=== PATIENT | male | born 2000 | race Caucasian/White ===

== ENCOUNTER 2023-10-24 20:31 | Emergency (ER) | payer BC ==
--- NOTE | 2023-10-24 21:26 | ED ---
General Adult HPI - General Chief complaint: Skin/Abscess/Foreign Body Stated complaint: Ravi Jarrell Time Seen by Provider: 10/24/23 20:46 Source: patient Mode of arrival: ambulatory Limitations: no limitations - History of Present Illness Initial comments: 23-year-old male with a past medical history significant for pilonidal cyst presenting to the ED with a chief complaint of buttock pain. Patient reports over the past 2 to 3 days has had increasing pain of his left buttock and has noticed some redness and swelling consistent with history of prior abscess formation in this area. Reports that he previously had a surgeon in [place] drain this and has not been giving him problems since then however now presenting with recurrence of this. No fever or chills. No problems with bowel movements. No other complaints at this time. - Related Data Previous Rx's Medication Instructions Recorded Cephalexin [Keflex] 500 mg PO Q6HR 7 Days #28 cap 10/24/23 Sulfamethox-Tmp 800-160Mg [Bactrim 1 tab PO Q12HR 7 Days #14 tab 10/24/23 DS 800-160 mg] Allergies Allergy/AdvReac Type Severity Reaction Status Date / Time No Known Allergies Allergy Verified 10/24/23 20:42 Review of Systems ROS Statement: Those systems with pertinent positive or pertinent negative responses have been documented in the HPI. ROS Other: All systems not noted in ROS Statement are negative. Past Medical History Past Medical History: Asthma History of Any Multi-Drug Resistant Organisms: None Reported Past Surgical History: Orthopedic Surgery Additional Past Surgical History / Comment(s): Broke collar bone Past Psychological History: No Psychological Hx Reported Smoking Status: Current every day smoker, Vaper Past Alcohol Use History: Occasional Past Drug Use History: None Reported General Exam Limitations: no limitations General appearance: alert, in no apparent distress Eye exam: Present: normal appearance Neck exam: Present: normal inspection Respiratory exam: Present: normal lung sounds bilaterally Cardiovascular Exam: Present: regular rate, normal rhythm GI/Abdominal exam: Present: soft Rectal exam: Present: other (Exam chaperoned by Alfonso BARBOSA. Exam shows fatuma roximately 3 x 3 cm area of fluctuance/induration with overlying warmth, erythema, tenderness to palpation in the left gluteal cleft consistent with abscess.) Neurological exam: Present: alert, oriented X3 Skin exam: Present: warm, dry Course Vital Signs 10/24/23 20:40 Temperature 99.3 F Pulse Rate 108 H Respiratory 20 Rate Blood Pressure 140/93 O2 Sat by Pulse 96 Oximetry Procedures - Incision & Drainage Site: buttock Size (cm): 3 Anesthetic Used: lidocaine 2%, with epi Amount (mLs): 4 I&D Cleaning Method: Chloroprep Sterile Field Used?: Yes Scalpel Used: #15 Ultrasound used: No Irrigation Performed?: Yes I&D Drainage Obtained: Pus, Blood Packing: Iodoform Culture Obtained?: Yes Patient Tolerated Procedure: well, no complications Medical Decision Making - Medical Decision Making Was pt. sent in by a medical professional or institution (, PA, DOOR CLOSER, urgent care, hospital, or [place] [facility] facility...) When possible be specific @ -No Did you speak to anyone other than the patient for history (EMS, parent, family, police, friend...)? What history was obtained from this source @ -No Did you review nursing and triage notes (agree or disagree)? Why? @ -I reviewed and agree with nursing and triage notes Were old charts reviewed (outside hosp., previous admission, EMS record, old EKG, old radiological studies, urgent care reports/EKG's, [place] [facility] facility records)? Report findings @ -No old charts were reviewed Differential Diagnosis (chest pain, altered mental status, abdominal pain women, abdominal pain men, vaginal bleeding, weakness, fever, dyspnea, syncope, headache, dizziness, GI bleed, back pain, seizure, CVA, palpatations, mental health, musculoskeletal)? @ -Differential Musculoskeletal Muscular strain, contusion, ligament sprain, fracture, arthritis, septic arthritis, bursitis, cellulitis, muscle spasm, nerve compression, DVT, arterial occlusion, herpes zoster, electrolyte abnormality, tumor.... This is not meant to be in all inclusive list EKG interpreted by me (3pts min.). @ -None X-rays interpreted by me (1pt min.). @ -None done CT interpreted by me (1pt min.). @ -None done U/S interpreted by me (1pt. min.). @ -None done What testing was considered but not performed or refused? (CT, X-rays, U/S, marci bs)? Why? @ -None What meds were considered but not given or refused? Why? @ -None Did you discuss the management of the patient with other professionals (professionals i.e. , PA, DOOR CLOSER, lab, RT, psych nurse, social media marketer, hematology supervisor, teacher, legal compliance officer, pillowcase cutter)? Give summary @ -No Was smoking cessation discussed for >3mins.? @ -No Was critical care preformed (if so, how long)? @ -No Were there social determinants of health that impacted care today? How? (Homelessness, low income, unemployed, alcoholism, drug addiction, transportation, low edu. Level, literacy, decrease access to med. care, longterm, rehab)? @ -No Was there de-escalation of care discussed even if they declined (Discuss DNR or withdrawal of care, Hospice)? DNR status @ -No What co-morbidities impacted this encounter? (DM, HTN, Smoking, COPD, CAD, Cancer, CVA, ARF, Chemo, Hep., AIDS, mental health diagnosis, sleep apnea, morbid obesity)? @ -None Was patient admitted / discharged? Hospital course, mention meds given and route, prescriptions, significant lab abnormalities, going to OR and other pertinent info. @ -Discharge 23-year-old male with history of pilonidal cyst presenting to the ED with buttock pain for the last few days. On examination there is about a 3 x 3 area of induration/fluctuance with overlying erythema warmth and tenderness to palpation consistent with abscess. This was drained. Please see procedure note for further details. Culture obtained. Patient provided starter packs of Keflex and Bactrim and provided prescription for Bactrim and Keflex as well. Discharged home in stable condition with instructions to follow-up with primary care and general surgery. Patient was provided a referral to see general surgery. Discharge vital signs stable afebrile. Discussed strict return precautions with patient who verbalized agreement. Undiagnosed new problem with uncertain prognosis? @ -No Drug Therapy requiring intensive monitoring for toxicity (Heparin, Nitro, Insulin, Cardizem)? @ -No Were any procedures done? @ -Yes, incision and drainage Diagnosis/symptom? @ -Pilonidal cyst/abscess Acute, or Chronic, or Acute on Chronic? @ -Acute Uncomplicated (without systemic symptoms) or Complicated (systemic symptoms)? @ -Uncomplicated Side effects of treatment? @ -No Exacerbation, Progression, or Severe Exacerbation? @ -No Poses a threat to life or bodily function? How? (Chest pain, [place], [place], pneumonia, PE, COPD, DKA, ARF, appy, cholecystitis, CVA, Diverticulitis, Homicidal, Suicidal, threat to staff... and all critical care pts) @ -No Disposition Clinical Impression: Pilonidal abscess Disposition: HOME SELF-CARE Condition: Good Instructions (If sedation given, give patient instructions): Abscess Incision and Drainage (ED) Additional Instructions: Please return to the Emergency Department if symptoms worsen or any other concerns. Please follow-up with general surgery with referral provided or follow-up with your surgeon in [place] who previously drained this. Prescriptions: Sulfamethox-Tmp 800-160Mg [Bactrim DS 800-160 mg] 1 tab PO Q12HR 7 Days #14 tab Cephalexin [Keflex] 500 mg PO Q6HR 7 Days #28 cap Is patient prescribed a controlled substance at d/c from ED?: No Referrals: None,Stated [Primary Care Provider] - 1-2 days Damián Lino MD [STAFF PHYSICIAN] - 1-2 days Time of Disposition: 22:29
[2023-10-24 21:36] VITALS: TEMP 99.3
[2023-10-24] MEDS: LIDOCAINE 2%-EPI 1:100,000 20 ML VIAL SQ STA (21:47)
[2023-10-24] MEDS: MORPHINE SULFATE 4 MG/ML SYRINGE IM STA (21:48)
[2023-10-24] MEDS ORDERED: SULFAMETHOX-TMP 800-160MG 1 EACH TAB PO STA (22:21)
[2023-10-24] MEDS: DIPH,PERTUS(ACELL)TETVAC-LF 0.5 ML VIAL IM ONE (22:53)
[2023-10-24] MEDS: CEPHALEXIN 500MG STARTER PACK 4 CAP BTL PO STA (22:59)
[2023-10-24] MEDS: SULFAMETH-TMP DS STARTER PACK 2 TAB BTL PO STA (23:00)
[2023-10-24 23:15] VITALS: BP 132/87; PULSE 109; RESP 18
== END 2023-10-24 23:08 | disposition home or self-care (01) ==
LOC: EC 20:31
DX: L05.91 Pilonidal cyst without abscess (principal); F17.290 Nicotine dependence, other tobacco product, uncomplicated; Z23 Encounter for immunization
CPT/HCPCS: 87070; 87205; 87075; 90715; 99282; 96372; 90471; 10080; J2270